=== PATIENT | female | born 1985 | race Caucasian/White ===

== ENCOUNTER 2021-04-12 15:40 | Emergency (ER) | payer SELFPAY ==
[~2021-04-12] VITALS: Ht 167.6 cm; Wt 58.1 kg
[2021-04-12 15:55] VITALS: BP 112/74
[2021-04-12] MEDS ORDERED: LIDOCAINE VISCOUS 2% 20 ML UDC PO ONE (16:40)
[2021-04-12] MEDS ORDERED: LORazepam 1 MG TAB PO ONE (16:40)
[2021-04-12] MEDS ORDERED: CHLOR MM (17:10)
[2021-04-12] MEDS ORDERED: ATI.5 PO (17:10)
[2021-04-12] MEDS ORDERED: LIDOCAINE VISCOUS 2% 20 ML UDC ONE (17:46)
[2021-04-12] MEDS ORDERED: LORazepam 0.5 MG TAB ONE (17:46)
[2021-04-12 17:48] VITALS: BP 110/70
--- NOTE | 2021-04-12 17:48 | NUR ---
Patient discharged with v/s stable. Written and verbal after care instructions given and explained. Patient alert, oriented and verbalized understanding of instructions. Ambulatory with steady gait. All questions addressed prior to discharge. ID band removed. Patient advised to follow up with PMD. Rx of ATIVAN, LIDOCAINE given. Patient educated on indication of medication including possible reaction and side effects. Opportunity to ask questions provided and answered.
== END 2021-04-12 17:48 | disposition home or self-care (01) ==
LOC: MED 15:40
DX: K12.0 Recurrent oral aphthae (principal); F41.9 Anxiety disorder, unspecified; Z79.899 Other long term (current) drug therapy
CPT/HCPCS: 99283